=== PATIENT | female | born 1990 | race Caucasian/White ===

== ENCOUNTER 2020-01-15 19:51 | Emergency (ER) | payer OTHER, SELFPAY ==
[2020-01-15 19:56] VITALS: BP 146/85; PULSE 115; RESP 22; TEMP 37.1; O2SAT 97; BMI 37.2
--- NOTE | 2020-01-15 20:17 | DI.RAD.S_ITS ---
PROCEDURE: XR CHEST 2V INDICATIONS: cough, sob TECHNIQUE: 2 views of the chest were acquired. COMPARISON: None. FINDINGS: Surgical changes and devices: None. Lungs and pleura: Lungs are clear. No pleural effusions or pneumothorax. Mediastinum: Mediastinal contours are normal. Heart size is normal. Bones and chest wall: No suspicious bony abnormalities. Soft tissues appear unremarkable. IMPRESSION: No evidence acute pulmonary process. Dictated by: Timbo Perez M.D. on 01/15/2020 at 20:38 Approved by: Timbo Perez M.D. on 01/15/2020 at 20:39
[2020-01-15] MEDS: ALBUTEROL HFA PREPACK 1 BOX MISC (20:31)
[2020-01-15 20:49] LABS: Add Manual Diff / Slide Review NO; Basophils Absolute Auto 0 /uL (0-100); Basophils Percent Auto 0.4 % (0-2); Eosinophils Absolute Auto 100 /uL (0-450); Eosinophils Percent Auto 1.6 % (2-4); Hematocrit 40.7 % (36-46); Hemoglobin 13.5 g/dL (12.0-16.0); Lymphocytes Absolute Auto 2900 /uL (1100-4500); Mean Corpuscular HGB Conc 33.1 % (30-36); Mean Corpuscular Hemoglobin 28.3 PG (26-34); Mean Corpuscular Volume 85.7 fL (80-100); Monocytes Absolute Auto 400 /uL (0-900); Monocytes Percent Auto 5.1 % (3-14); Neutrophils Absolute Auto 5200 /uL (1500-7000); Neutrophils Percent Auto 59.9 % (50-75); Platelet Count 279 X10^3/uL (150-400); Red Blood Cell Count 4.75 X10^6/uL (4.0-5.2); Red Cell Distribution Width 12.9 % (11.6-14.8); White Blood Cell Count 8.7 X10^3/uL (4.5-11.0)
--- NOTE | 2020-01-15 20:53 | ED.URI ---
HPI - URI/Sore Throat <FLORENCIO Montez - Last Filed: 01/15/20 22:02> General Chief Complaint: Upper Respiratory Symptoms Stated Complaint: CHEST HURTS COUGH SOB NAUSEA Time Seen by Provider: 01/15/20 19:55 Source: patient Mode of arrival: Ambulatory Limitations: no limitations History of Present Illness HPI Narrative: This is a 29-year-old female, nonsmoker, who presents to ED with short of breath, nonproductive cough, mid chest pressure discomfort since yesterday. Patient reports she had intermittent nausea for last couple days which got became worse. Patient stays her symptoms got much worse today and was concerned and called nurse line and she was referred to emergency room for evaluation. Patient has history of anxiety and depression and recently had medication change from Zoloft to Paxil about a week ago states struggling with the emotion and from current state with Covid-19 pandemic crisis and she worries about her 2-year-old child at home. Patient denies fever, chills, sore throat. Patient denies ill exposure and has been self quarantine at home for last 1 week. Patient states her chest discomfort is similar to pain from pneumonia that she had 2 years ago. Patient states she has been eating, drinking well and denies any urinary symptoms. LMP almost 4 weeks ago but is not concerned for and states using NuvaRing consistently. Patient denies recent travel, history of blood clots, prolonged bed rest. Related Data Allergies Allergy/AdvReac Type Severity Reaction Status Date / Time morphine Allergy Severe ITCHING Verified 01/15/20 20:00 Review of Systems <FLORENCIO Montez - Last Filed: 01/15/20 22:02> Review of Systems Narrative: General: Denies fever, chills, fatigue, malaise, sweats. HEENT: Denies sinus pain, ear pain, sore throat, difficulty swallowing, dizziness. Respiratory: See HPI Cardiovascular: Denies (+) chest pain, palpitations, orthopnea, edema. Gastrointestinal: Denies (+) nausea, vomiting, abdominal pain, diarrhea, constipation, melena. : Denies dysuria, frequency, incontinence, hematuria, urinary retention. Musculoskeletal: Denies weakness, joint pain or bony pain. Skin: Denies rash, skin lesions, or other. Neurologic: Denies weakness, headache, numbness, change in speech, confusion, seizures, incoordination. Psychiatric: Reports increased anxiety. She denies suicidal or homicidal ideation. 12-point review of systems is negative except for those stated above. Patient History <FLORENCIO Montez - Last Filed: 01/15/20 22:02> Medical History Anxiety (Acute) Depression (Acute) Pneumonia (Acute) Surgical History History of removal of ovarian cyst (Acute) Hx of cholecystectomy (Acute) Social History Smoking Status: Never smoker Smoking Status: Never smoker alcohol intake frequency: 0-2 drinks per day Substance Use Type: does not use Exam <FLORENCIO Montez - Last Filed: 01/15/20 22:02> Narrative Exam Narrative: GEN: Alert, oriented x 3, well appearing and nourished, and moderate distress and easily became tearful during exam. Head: Normal cephalic, atraumatic. No scalp or temporal tenderness, palpable mass or rash. EYES: Pupils are equal, round, and reactive to light and accommodation. Extraocular muscles are intact bilaterally. There is no subconjunctival hemorrhage, exudate and sclera non-icteric. ENT: Bilateral auditory canals and tympanic membranes clear. Hearing grossly intact. Nose without bleeding, purulent discharge or deviation. Facial sinuses nontender to palpate. Mucous membrane moist, no mucosal lesion. Throat without erythema, tonsillar hypertrophy or exudate. Uvula in midline, airway patent. Neck: Trachea in midline. No JVD, non-tender without lymphadenopathy. No masses or thyroid megaly. Supple, non-tender and no meningeal signs. CARDIAC: Normal regular tachy rate and rhythm without murmurs, gallops, or rubs. No chest wall tenderness. No peripheral edema, cyanosis or pallor. Capillary refill is less than 2 seconds. RESPIRATORY: Lungs are clear to auscultate bilaterally. Nonproductive cough witnessed during exam. No wheezes, rales, or rhonchi. No stridor, respiratory distress, increase work of breathing, or accessary muscle used. Oxygenation in room air was 98 to 98%. ABD: Abdomen soft, nontender and non-distended. No guarding or rebound tenderness to palpate. Bowel sounds are normal in all 4 quadrants. There is no palpable masses or organomegaly. EXT: Full painless ROM of all extremities with no loss of sensation, strength, effusion or edema. SKIN: Warm, dry, normal color for patient. No erythema, lesions or rash over visible areas. BACK: Nontender without deformity or crepitance. No flank tenderness. NEUROLOGICAL: Alert and oriented to place, time and person. Sensation and motor function intact bilaterally. No facial droops, dysphasia. PSYCHIATRIC: No hallucinations or abnormal behaviors during the examination. Apprehensive and easily tearful during exam stating increased anxiety. Patient is not suicidal. Initial Vital Signs Initial Vital Signs: Vital Signs Temperature 98.8 F 01/15/20 19:56 Pulse Rate 115 H 01/15/20 19:56 Respiratory Rate 22 01/15/20 19:56 Blood Pressure 146/85 H 01/15/20 19:56 Pulse Oximetry 97 01/15/20 19:56 <Nisah Dennis MD - Last Filed: 01/15/20 22:57> Initial Vital Signs Initial Vital Signs: Vital Signs Temperature 98.8 F 01/15/20 19:56 Pulse Rate 115 H 01/15/20 19:56 Respiratory Rate 22 01/15/20 19:56 Blood Pressure 146/85 H 01/15/20 19:56 Pulse Oximetry 97 01/15/20 19:56 Scores <FLORENCIO Montez - Last Filed: 01/15/20 22:02> GCS Charles coma scale eye opening: Spontaneous Charles coma scale verbal response: Orientated Charles coma scale motor response: Obey commands Charles coma scale total score: 15 Wells' Criteria for PE Clinical signs and symptoms of DVT: No PE is #1 Dx or equally likely: No Heart rate > 100: Yes Immobilization at least 3 days or surg in previous 4 weeks: No History of PE or DVT: No Hemoptysis: No Malignancy w/Treatment within 6 months or palliative: No Wells' PE Score total: 1.5 Course <FLORENCIO Montez - Last Filed: 01/15/20 22:02> Orders Ordered: ED Orders 01/15/20 20:17 XR chest 2V Stat EKG-12 Lead Stat 01/15/20 20:41 Complete Blood Count AUTO DIFF Stat Comprehensive Metabolic Panel Stat D Dimer Stat Lipase Stat Troponin & CK Cardiac Panel Stat Discontinued Medications Albuterol (Ventolin Hfa Prepack) 1 box [facility] SEE[facility] ONE Stop: 01/15/20 20:18 Last Admin: 01/15/20 20:31 Dose: 1 box Documented by: MARLEY Ondansetron HCl (Zofran Odt) 4 mg SL NOW ONE Stop: 01/15/20 20:56 Last Admin: 01/15/20 22:14 Dose: Not Given Documented by: MARLEY Vital Signs Vital signs: Vital Signs - 8 hr 01/15/20 19:56 01/15/20 20:54 01/15/20 21:00 Temperature 98.8 F Pulse Rate 115 H 97 H 96 H Respiratory Rate 22 18 Blood Pressure 146/85 H Blood Pressure [Left Arm] 149/90 H Pulse Oximetry 97 96 01/15/20 21:30 01/15/20 22:12 Temperature 98.9 F Pulse Rate 97 H Respiratory Rate 18 Blood Pressure Blood Pressure [Left Arm] 149/89 H Pulse Oximetry 96 <Nisha Dennis MD - Last Filed: 01/15/20 22:57> Orders Ordered: ED Orders 01/15/20 20:17 XR chest 2V Stat EKG-12 Lead Stat 01/15/20 20:41 Complete Blood Count AUTO DIFF Stat Comprehensive Metabolic Panel Stat D Dimer Stat Lipase Stat Troponin & CK Cardiac Panel Stat Discontinued Medications Albuterol (Ventolin Hfa Prepack) 1 box [facility] ONE Stop: 01/15/20 20:18 Last Admin: 01/15/20 20:31 Dose: 1 box Documented by: MARLEY Ondansetron HCl (Zofran Odt) 4 mg SL NOW ONE Stop: 01/15/20 20:56 Last Admin: 01/15/20 22:14 Dose: Not Given Documented by: MARLEY Vital Signs Vital signs: Vital Signs - 8 hr 01/15/20 19:56 01/15/20 20:54 01/15/20 21:00 Temperature 98.8 F Pulse Rate 115 H 97 H 96 H Respiratory Rate 22 18 Blood Pressure 146/85 H Blood Pressure [Left Arm] 149/90 H Pulse Oximetry 97 96 0413/20 21:30 01/15/20 22:12 Temperature 98.9 F Pulse Rate 97 H Respiratory Rate 18 Blood Pressure Blood Pressure [Left Arm] 149/89 H Pulse Oximetry 96 MDM - URI/Sore Throat <WILBUR MontezP - Last Filed: 01/15/20 22:02> Differential Diagnosis Differential diagnosis: Likely upper respiratory infection, bronchitis and other (Pneumonia, coronavirus infection, atypical chest pain, PE, pancreatitis) Medical Records Attestation: I reviewed the patient's medical records. Lab Data Attestation: I reviewed the patient's lab results. Result diagrams: 01/15/20 20:41 01/15/20 20:41 Labs: Lab Results 01/15/20 01/15/20 01/15/20 Range/Units 20:41 20:41 20:41 WBC 8.7 (4.5-11.0) X10^3/uL RBC 4.75 (4.0-5.2) X10^6/uL Hgb 13.5 (12.0-16.0) g/dL Hct 40.7 (36-46) % MCV 85.7 (80-100) fL MCH 28.3 (26-34) PG MCHC 33.1 (30-36) % RDW 12.9 (11.6-14.8) % Plt Count 279 (150-400) X10^3/uL Neut % (Auto) 59.9 (50-75) % Lymph % (Auto) 33.0 (25-40) % Elmore % (Auto) 5.1 (3-14) % Eos % (Auto) 1.6 L (2-4) % Baso % (Auto) 0.4 (0-2) % Neut # (Auto) 5200 (2874-9689) /uL Lymph # (Auto) 2900 (0909-7731) /uL Elmore # (Auto) 400 (0-900) /uL Eos # (Auto) 100 (0-450) /uL Baso # (Auto) 0 (0-100) /uL D-Dimer 236 H (<230) ng/mL Sodium 138 (137-145) mmol/L Potassium 3.5 (3.4-5.1) mmol/L Chloride 103 (98-107) mmol/L Carbon Dioxide 26 (22-32) mmol/L BUN 8 (7-17) mg/dL Creatinine 0.68 (0.52-1.04) mg/dL Estimated GFR > 60.0 (>60) mL/min BUN/Creatinine Ratio 11.8 (6-22) Glucose 170 H (70-100) mg/dL Calcium 9.8 (8.4-10.2) mg/dL Total Bilirubin 0.2 (0.2-1.3) mg/dL AST 17 (14-36) IU/L ALT 13 (<35) IU/L Alkaline Phosphatase 101 (38-126) U/L Total Creatine Kinase 61 (30-135) U/L CK-MB (CK-2) TNP CK-MB (CK-2) Rel Index TNP Troponin I < 0.012 (0.01-0.034) ng/mL Total Protein 7.6 (6.3-8.2) g/dL Albumin 4.2 (3.5-5.0) g/dL Globulin 3.4 (1.7-4.1) g/dL Albumin/Globulin Ratio 1.2 (1.0-2.8) Lipase 148 (23-300) U/L Imaging Data Chest x-ray: Radiologist's Impression: [place] [address] XRay Report Signed Patient: Shauna Rodríguez [facility]#: [id number] : 1990Acct:[id number] Age/Sex: 29 / FDate of Service: 01/15/20 Loc: ED Accession Number: [id number] Procedure: XR chest 2V Ordering Provider: Bakari Rivers PROCEDURE: XR CHEST 2V INDICATIONS: cough, sob TECHNIQUE: 2 views of the chest were acquired. COMPARISON: None. FINDINGS: Surgical changes and devices: None. Lungs and pleura: Lungs are clear. No pleural effusions or pneumothorax. Mediastinum: Mediastinal contours are normal. Heart size is normal. Bones and chest wall: No suspicious bony abnormalities. Soft tissues appear unremarkable. IMPRESSION: No evidence acute pulmonary process. Dictated by: Timbo Perez M.D. on 01/15/2020 at 20:38 Approved by: Timbo Perez M.D. on 01/15/2020 at 20:39 ECG Data Attestation: I personally reviewed and interpreted this ECG as follows: Prior ECG tracings: not available for review Interpretation: Sinus rhythm rate at 91. Left dominant axis. IL int 152, QRS dur 93, QT/QTc 378/464. No ST elevation or depression. MDM Narrative Medical decision making narrative: This is a 29-year-old female who has history of anxiety and depression presents to ED with chest pressure, short of breath, nonproductive cough with intermittent nausea which started yesterday and much worse today and concern for Covid 19. She reports increased anxiety with cold with pandemic crisis and a recent medication change from Zoloft to Paxil. Patient's lung sounds are clear to auscultate without increased work of breathing. Patient's O2 sat in room air was 98-99%. Chest x-ray does not indicate acute findings. Patient was tachycardia when she arrived to ED with heart rate of 116. Patient easily became tearful during exam and heart rate increased to 110's, at resting heart rate in 100's with with slightly hypertensive. Patient provided albuterol inhaler with spacer which patient found to be helpful with chest discomfort. No leukocytosis or decreased lymphocytes and with normal platelets. Stable H&H. Mildly increased serum glucose of 170 otherwise unremarkable chemistry test. Cardiac enzymes were negative. Lipase was normal of 148 with within normal liver function test. Patient declined Zofran for intermittent nausea. EKG was sinus rhythm rate at 91. Wells score for PE was 1.5 and patient is in low risk group for PE. D-dimer test was 236 (corrected D-dimer would be 310) and likely negative for PE. Patient advise continue with self quarantine and she will receive a phone call from a with coronavirus test results. Patient advised to manage her stressed with deep breathing exercise, guided imagery, relaxation and discussed with her PCP if new medication is not working effectively next 2-3 weeks. Return precautions were discussed with the patient and patient verbalized understanding and in agreement with treatment plan. Discharged to home with prepack albuterol with spacer. Teaching has been done by RT. <Nisha Dennis MD - Last Filed: 01/15/20 22:57> Lab Data Labs: Lab Results 01/15/20 01/15/20 01/15/20 Range/Units 20:41 20:41 20:41 WBC 8.7 (4.5-11.0) X10^3/uL RBC 4.75 (4.0-5.2) X10^6/uL Hgb 13.5 (12.0-16.0) g/dL Hct 40.7 (36-46) % MCV 85.7 (80-100) fL MCH 28.3 (26-34) PG MCHC 33.1 (30-36) % RDW 12.9 (11.6-14.8) % Plt Count 279 (150-400) X10^3/uL Neut % (Auto) 59.9 (50-75) % Lymph % (Auto) 33.0 (25-40) % Elmore % (Auto) 5.1 (3-14) % Eos % (Auto) 1.6 L (2-4) % Baso % (Auto) 0.4 (0-2) % Neut # (Auto) 5200 (8496-2017) /uL Lymph # (Auto) 2900 (2040-2132) /uL Elmore # (Auto) 400 (0-900) /uL Eos # (Auto) 100 (0-450) /uL Baso # (Auto) 0 (0-100) /uL D-Dimer 236 H (<230) ng/mL Sodium 138 (137-145) mmol/L Potassium 3.5 (3.4-5.1) mmol/L Chloride 103 (98-107) mmol/L Carbon Dioxide 26 (22-32) mmol/L BUN 8 (7-17) mg/dL Creatinine 0.68 (0.52-1.04) mg/dL Estimated GFR > 60.0 (>60) mL/min BUN/Creatinine Ratio 11.8 (6-22) Glucose 170 H (70-100) mg/dL Calcium 9.8 (8.4-10.2) mg/dL Total Bilirubin 0.2 (0.2-1.3) mg/dL AST 17 (14-36) IU/L ALT 13 (<35) IU/L Alkaline Phosphatase 101 (38-126) U/L Total Creatine Kinase 61 (30-135) U/L CK-MB (CK-2) TNP CK-MB (CK-2) Rel Index TNP Troponin I < 0.012 (0.01-0.034) ng/mL Total Protein 7.6 (6.3-8.2) g/dL Albumin 4.2 (3.5-5.0) g/dL Globulin 3.4 (1.7-4.1) g/dL Albumin/Globulin Ratio 1.2 (1.0-2.8) Lipase 148 (23-300) U/L Discharge Plan Departure Patient Disposition: Home Clinical Impression: Anxiety Upper respiratory infection Qualifiers: URI type: unspecified URI Qualified Code(s): J06.9 - Acute upper respiratory infection, unspecified Discharge Date/Time: 01/15/20 20:13 Instructions: DI for Viral Upper Respiratory Infection -- Adult, DI for Anxiety -- Adult Activity Restrictions/Additional Instructions: You have been diagnosed with [upper respiratory infection and anxiety]. What to do: *Take your medications as directed. Please use inhaler with spacer with frequent cough, chest tightness, short of breath. EKG, chest x-ray, blood tests were all assuring. Cardiac enzyme test was negative. Chest x-ray was negative for infection. EKG was sinus rhythm rate at 91. Chemistry test, CBC were unremarkable except mildly elevated serum glucose of 170. D-dimer was 236. * per recommendations from the CDC and the [facility] Department of Health for coronavirus infection. * stay home except to get medical care. Restrict activities outside your home, except for getting medical care. Do not go to work, school, or public areas. Avoid using public transportation, ride sharing, or taxis. * separate yourself from other people in your home. * call ahead before visiting your doctor * Wear a face mask * Cover your coughs and sneezes * Clean your hands often * Avoid sharing household items * Clean all high-touch services every day * Monitor your symptoms and seek prompt medical attention if your illness is worsening, particularly with difficulty in breathing. Discussed continuing home isolation * for individuals with symptoms who are confirmed or suspected cases of COVID-19 and are directed to care for themselves at home, discontinue home isolation under the following conditions: 1. At least 72 hours have passed since recovery, defined as resolution of fever without the use of fever reducing medications, and improvement in respiratory symptoms (cough, shortness of breath) AND, 2. At least 7 days have passed since symptoms 1st appeared Individuals with laboratory confirmed COVID-19 who have not had any symptoms may discontinue home isolation when at least 7 days have passed since the date of their 1st COVID-19 diagnostic test and have had no subsequent illness *Follow up with your primary care provider in 2-3 days, call for an appointment (if Covid test is negative). Let them know you were seen in the ED and that we asked you to be seen in follow up. *Return to ED if you have any new, worsening, or concerning symptoms, such as [increasing pain, different type of chest pain, breathing difficulty, unable to tolerate fluids, high fever, or any acute concerns]. Referrals: [facility] [Outside] <Nisha Dennis MD - Last Filed: 01/15/20 22:57> Cosign ED Attending Cosignature Attestation: I was immediately available in the department for consultation throughout this patient's visit. I agree with documentation as above. Nisha Dennis MD
[2020-01-15 20:54] VITALS: PULSE 97
[2020-01-15 21:00] VITALS: BP 149/90; PULSE 96; RESP 18; O2SAT 96
[2020-01-15 21:02] LABS: Alanine Aminotransferase 13 IU/L (<35); Albumin 4.2 g/dL (3.5-5.0); Albumin Globulin Ratio 1.2 (1.0-2.8); Alkaline Phosphatase 101 U/L (38-126); Aspartate Aminotransferase 17 IU/L (14-36); BUN Creatinine Ratio 11.8 (6-22); Bilirubin Total 0.2 mg/dL (0.2-1.3); Blood Urea Nitrogen 8 mg/dL (7-17); Calcium 9.8 mg/dL (8.4-10.2); Carbon Dioxide 26 mmol/L (22-32); Chloride 103 mmol/L (98-107); Creatine Kinase 61 U/L (30-135); Estimated Glomerular Filt Rate > 60.0 mL/min (>60); Globulin 3.4 g/dL (1.7-4.1); Glucose 170 mg/dL (70-100); HEMOLYSIS < 15 (0-50); Lipase 148 U/L (23-300); Potassium 3.5 mmol/L (3.4-5.1); Sodium 138 mmol/L (137-145); Total Protein 7.6 g/dL (6.3-8.2)
[2020-01-15 21:14] LABS: Troponin I < 0.012 ng/mL (0.01-0.034)
[2020-01-15 21:30] VITALS: BP 149/89; PULSE 97; RESP 18; O2SAT 96
[2020-01-15 21:32] LABS: D Dimer 236 ng/mL (<230)
[2020-01-15 22:12] VITALS: TEMP 37.2
[2020-01-18 04:07] LABS: COVID19 Sendout Not Detected (Not Detected)
== END 2020-01-15 20:13 | disposition home or self-care (01) ==
PROVIDERS: Emergency Provider Nurse Practitioner Family
DX: F41.9 Anxiety disorder, unspecified (principal); J06.9 Acute upper respiratory infection, unspecified; R05 Cough; R07.9 Chest pain, unspecified; R06.02 Shortness of breath
CPT/HCPCS: 36415; 71046; 80053; 82550; 83690; 84484; 85025; 85379; 87635; 93005; 94640; 99284

== ENCOUNTER → 2022-07-01 13:53 | Outpatient (CLI) | payer OTHER, SELFPAY ==
--- NOTE | 2022-07-01 19:11 | DI.NM.S_ITS ---
DATE OF SERVICE: 07/01/2022 PROCEDURE PERFORMED: Exercise stress test. INDICATION: Palpitation with inappropriate sinus tachycardia. CARDIAC STRESS: The underwent exercise stress test under the supervision of an attending staff. She walked on Hermes protocol for 7 minutes and 56 seconds, achieved 94 percent of target heart rate, 10.1 METs of workload and functional aerobic impairment positive 16 percent. Baseline blood pressure 124/80 and peak blood pressure 160/90 mmHg. Baseline rhythm was sinus with heart rate 99 to 119 beats per minute with some nonspecific ST-T changes. During exercise, there were no convincing new inducible ischemic changes. No significant arrhythmias. However, in recovery, the patient has frequent PVCs, mostly monomorphic, including bigeminy pattern. No ventricular tachycardia. The patient was symptomatic with PVCs. She did Valsalva and PVC got resolved. No chest discomfort. Had some shortness of breath. CONCLUSION: 1. Exercise stress test is negative for inducible ischemia. 2. Diminished exercise tolerance. Functional aerobic impairment positive 16 percent. 3. Normal blood pressure response. 4. Baseline sinus tachycardia. In recovery, frequent premature ventricular contractions, which were monomorphic and got resolved with Valsalva. No chest discomfort. Shauna Rodríguez - CALI/tania/curly doc#: [id number]/job#: [id number] dd: 07/01/2022 17:17:00 dt: 07/01/2022 17:45:00 DICTATING /COPIES TO: Zina Aguirre MD COPIES MNE: JUDY;
== END ==
PROVIDERS: PCP Student in an Organized Health Care Education/Training Program; Referring Provider Internal Medicine Cardiovascular Disease; Visit Provider Internal Medicine Cardiovascular Disease
DX: R00.0 Tachycardia, unspecified (principal)
CPT/HCPCS: 93017

== ENCOUNTER 2022-07-27 13:18 | Emergency (ER) | payer OTHER, SELFPAY ==
[2022-07-27 13:24] VITALS: BP 138/76
[2022-07-27 13:25] VITALS: PULSE 107; O2SAT 97
[2022-07-27 13:27] VITALS: BP 136/76; PULSE 106; RESP 16; TEMP 36.9; O2SAT 99
[2022-07-27 13:30] VITALS: BP 129/82; PULSE 106; O2SAT 96
[2022-07-27 14:00] VITALS: BP 128/77; PULSE 108; O2SAT 96
--- NOTE | 2022-07-27 14:07 | ED.ABDPAIN ---
HPI - Abdominal Pain <FLORENCIO Hawley - Last Filed: 07/27/22 18:48> General Chief Complaint: Abdominal Pain Stated Complaint: abd pain since Time Seen by Provider: 07/27/22 13:36 Source: patient Mode of arrival: Ambulatory History of Present Illness HPI narrative: This is a 31-year-old female with history of type 2 diabetes, on Jardiance, who presents to emergency department complaining of suprapubic fullness and pressure for the last 4 days. She denies having abnormal vaginal discharge, states that her is deployed, denies any fever or chills. Denies urinary frequency or urgency, denies flank pain, shortness of breath, chest pain, back pain. Denies any upper abdominal pain, has a history of cholecystectomy and ovarian cyst with ovarian cystectomy x1. Denies any upper abdominal pain, nausea or vomiting. States that she needs to leave by 16:00 today. Patient reports that she has a history of bacterial vaginosis as well. Related Data Previous Rx's Medication Instructions Recorded metronidazole 500 mg tablet 500 mg PO BID 7 days #14 tabs 07/27/22 Allergies Allergy/AdvReac Type Severity Reaction Status Date / Time morphine Allergy Severe ITCHING Verified 07/27/22 13:30 Review of Systems <FLORENCIO Hawley - Last Filed: 07/27/22 18:48> Review of Systems Narrative: Review of systems is negative for acute abnormalities unless otherwise noted in HPI Patient History <FLORENCIO Hawley - Last Filed: 07/27/22 18:48> Medical History (Updated 07/27/22 @ 15:55 by FLORENCIO Hawley) Anxiety Depression Pneumonia Surgical History History of removal of ovarian cyst Hx of cholecystectomy Social History Smoking Status: Never smoker Smoking Status: Never smoker alcohol intake frequency: 0-2 drinks per day Substance Use Type: does not use Exam <FLORENCIO Hawley - Last Filed: 07/27/22 18:48> Narrative Exam Narrative: Reviewed vitals signs and nursing notes. General: cooperative, comfortable, in no acute distress, well groomed HEENT: symmetrical facial expressions, moist mucous membranes Cardiovascular: regular rate and rhythm, no peripheral edema, warm extremities Respiratory: normal effort, able to speak in complete sentences, without wheezing, stridor, or abnormal breath sounds. No retractions or tachypnea. GI: abdomen soft, nontender to palpation, nondistended, without masses, rebound tenderness or exquisite tenderness with exam. /blood splatter analyst: Pelvic exam completed, patient has white vaginal discharge appears to be more than a normal amount, without adnexal tenderness MSK: moves all extremities, neurovascularly intact, no weakness, normal tone Skin: brisk capillary refill, without pallor or erythema Neuro: normal speech and cognition, A&O x3, ambulatory, clear speech Psych: mental status is grossly normal, congruent mood, normal affect, pleasant and cooperative Initial Vital Signs Initial Vital Signs: Vital Signs Blood Pressure 138/76 07/27/22 13:24 <Shauna Ellsion DO - Last Filed: 08/02/22 04:41> Initial Vital Signs Initial Vital Signs: Vital Signs Blood Pressure 138/76 07/27/22 13:24 Course <FLORENCIO Hawley - Last Filed: 07/27/22 18:48> Course Additional Information: [facility] CLIA ID [id number] [address] [place] [address] RUN DATE: 07/27/22 Specimen Inquiry PAGE 1 RUN TIME: 1603 Name: Shauna Rodríguez Age/Sex: 31/F Attend Dr: Nia Kinney Unit#: [id number] : 1990Location: ED Re07/27/22 Disch: Status: REG ER SPEC #: [id number] LUIZA: 07/27/22 STATUS: COMP REQ #: [id number] SPDESC: RECD: 07/27/221520 SUBM DR: Nia Kinney SOURCE: Vaginal ENTR: 07/27/[address]: Ana M Navarro MD FAX TO: ORDERED: Wet Prep Procedure Result Verified Site Wet Prep Tric BV Marimar Final 07/27/22-154 White blood cells Moderate poly WBCs Clue cells: None seen Yeast: None seen Trichomonas: None seen Orders Ordered: Discontinued Medications Acetaminophen (Acetaminophen 325 Mg Tablet) 650 mg PO NOW ONE Stop: 07/27/22 14:11 Last Admin: 07/27/22 14:36 Dose: 650 mg Documented By: CARLOS ALBERTO Ketorolac Tromethamine (Ketorolac 10 Mg Tablet) 10 mg PO NOW ONE Stop: 07/27/22 14:11 Last Admin: 07/27/22 14:36 Dose: 10 mg Documented By: CARLOS ALBERTO Metronidazole (Metronidazole 500 Mg Tablet) 500 mg PO NOW ONE Stop: 07/27/22 15:39 Last Admin: 07/27/22 15:49 Dose: 500 mg Documented By: CARLOS ALBERTO Metronidazole (Metronidazole 0.75% 70 Gm Gel) 5 applic VAG NOW ONE Stop: 07/27/22 15:40 Last Admin: 07/27/22 15:49 Dose: 5 applic Documented By: CARLOS ALBERTO Phenazopyridine HCl (Phenazopyridine 100 Mg Tablet) 100 mg PO NOW ONE Stop: 07/27/22 14:11 Last Admin: 07/27/22 14:37 Dose: 100 mg Documented By: CARLOS ALBERTO Vital Signs Vital signs: Vital Signs - 8 hr 07/27/22 13:27 07/27/22 13:24 07/27/22 13:25 Temperature 98.5 F Pulse Rate 106 H 107 H Respiratory Rate 16 Blood Pressure 136/76 138/76 Pulse Oximetry 99 97 Oxygen Delivery Method Room Air 07/27/22 13:30 07/27/22 13:30 07/27/22 14:00 Temperature Pulse Rate 106 H Respiratory Rate Blood Pressure 129/82 128/77 Pulse Oximetry 96 Oxygen Delivery Method 07/27/22 14:00 Temperature Pulse Rate 108 H Respiratory Rate Blood Pressure Pulse Oximetry 96 Oxygen Delivery Method <Shauna Ellison DO - Last Filed: 08/02/22 04:41> Orders Ordered: Discontinued Medications Acetaminophen (Acetaminophen 325 Mg Tablet) 650 mg PO NOW ONE Stop: 07/27/22 14:11 Last Admin: 07/27/22 14:36 Dose: 650 mg Documented By: CARLOS ALBERTO Ketorolac Tromethamine (Ketorolac 10 Mg Tablet) 10 mg PO NOW ONE Stop: 07/27/22 14:11 Last Admin: 07/27/22 14:36 Dose: 10 mg Documented By: CARLOS ALBERTO Metronidazole (Metronidazole 500 Mg Tablet) 500 mg PO NOW ONE Stop: 07/27/22 15:39 Last Admin: 07/27/22 15:49 Dose: 500 mg Documented By: CARLOS ALBERTO Metronidazole (Metronidazole 0.75% 70 Gm Gel) 5 applic VAG NOW ONE Stop: 07/27/22 15:40 Last Admin: 07/27/22 15:49 Dose: 5 applic Documented By: CARLOS ALBERTO Phenazopyridine HCl (Phenazopyridine 100 Mg Tablet) 100 mg PO NOW ONE Stop: 07/27/22 14:11 Last Admin: 07/27/22 14:37 Dose: 100 mg Documented By: CARLOS ALBERTO Vital Signs Vital signs: Vital Signs - 8 hr 07/27/22 13:27 07/27/22 13:24 07/27/22 13:25 Temperature 98.5 F Pulse Rate 106 H 107 H Respiratory Rate 16 Blood Pressure 136/76 138/76 Pulse Oximetry 99 97 Oxygen Delivery Method Room Air 07/27/22 13:30 07/27/22 13:30 07/27/22 14:00 Temperature Pulse Rate 106 H Respiratory Rate Blood Pressure 129/82 128/77 Pulse Oximetry 96 Oxygen Delivery Method 07/27/22 14:00 Temperature Pulse Rate 108 H Respiratory Rate Blood Pressure Pulse Oximetry 96 Oxygen Delivery Method MDM - Abdominal Pain <FLORENCIO Hawley - Last Filed: 07/27/22 18:48> Lab Data Result diagrams: 07/27/22 14:17 07/27/22 14:17 Labs: Lab Results 07/27/22 07/27/22 07/27/22 Range/Units 14:11 14:17 14:17 WBC 8.7 (4.5-11.0) X10^3/uL RBC 5.11 (4.0-5.2) X10^6/uL Hgb 14.9 (12.0-16.0) g/dL Hct 44.6 (36-46) % MCV 87.2 (80-100) fL MCH 29.1 (26-34) PG MCHC 33.4 (30-36) % RDW 12.9 (11.6-14.8) % Plt Count 247 (150-400) X10^3/uL Neut % (Auto) 58.4 (50-75) % Lymph % (Auto) 35.2 (25-40) % [place] % (Auto) 4.6 (3-14) % Eos % (Auto) 1.6 L (2-4) % Baso % (Auto) 0.2 (0-2) % Neut # (Auto) 5100 (8930-6428) /uL Lymph # (Auto) 3100 (6739-9235) /uL [place] # (Auto) 400 (0-900) /uL Eos # (Auto) 100 (0-450) /uL Baso # (Auto) 0 (0-100) /uL Sodium 137 (137-145) mmol/L Potassium 4.4 (3.4-5.1) mmol/L Chloride 102 (98-107) mmol/L Carbon Dioxide 27 (22-32) mmol/L BUN 10 (7-17) mg/dL Creatinine 0.58 (0.52-1.04) mg/dL Estimated GFR > 60 (>60) mL/min BUN/Creatinine Ratio 17.2 (6-22) Glucose 130 H (70-100) mg/dL Calcium 9.2 (8.4-10.2) mg/dL Total Bilirubin 0.3 (0.2-1.3) mg/dL AST 32 (14-36) IU/L ALT 37 H (<35) IU/L Alkaline Phosphatase 90 (38-126) U/L Total Protein 7.3 (6.3-8.2) g/dL Albumin 4.2 (3.5-5.0) g/dL Globulin 3.1 (1.7-4.1) g/dL Albumin/Globulin Ratio 1.4 (1.0-2.8) Lipase 116 (23-300) U/L Serum , Qual (Negative) Urine Color Yellow Urine Appearance Clear Urine pH 5.0 (4.5-8.0) Ur Specific Fitz[place]am 1.015 (1.000-1.035) Urine Protein Negative (Negative) Urine Glucose (UA) 3+ H (Negative) g/dL Urine Ketones Negative (NEGATIVE) Urine Occult Blood Negative (Negative) Urine Nitrate Negative (Negative) Urine Bilirubin Negative (NEGATIVE) Urine Urobilinogen 0.2 (0.2) E.U./dL Ur Leukocyte Esterase Negative (NEGATIVE) Urine RBC None seen (0-5/HPF) Urine WBC None seen (0-5/HPF) Ur Squamous Epith Cells 0-1 /hpf (0-5/HPF) Urine Bacteria None seen (None) Ur Culture Indicated? Cult not indicated 07/27/22 Range/Units 14:18 WBC (4.5-11.0) X10^3/uL RBC (4.0-5.2) X10^6/uL Hgb (12.0-16.0) g/dL Hct (36-46) % MCV (80-100) fL MCH (26-34) PG MCHC (30-36) % RDW (11.6-14.8) % Plt Count (150-400) X10^3/uL Neut % (Auto) (50-75) % Lymph % (Auto) (25-40) % [place] % (Auto) (3-14) % Eos % (Auto) (2-4) % Baso % (Auto) (0-2) % Neut # (Auto) (8115-2288) /uL Lymph # (Auto) (4632-7321) /uL [place] # (Auto) (0-900) /uL Eos # (Auto) (0-450) /uL Baso # (Auto) (0-100) /uL Sodium (137-145) mmol/L Potassium (3.4-5.1) mmol/L Chloride (98-107) mmol/L Carbon Dioxide (22-32) mmol/L BUN (7-17) mg/dL Creatinine (0.52-1.04) mg/dL Estimated GFR (>60) mL/min BUN/Creatinine Ratio (6-22) Glucose (70-100) mg/dL Calcium (8.4-10.2) mg/dL Total Bilirubin (0.2-1.3) mg/dL AST (14-36) IU/L ALT (<35) IU/L Alkaline Phosphatase (38-126) U/L Total Protein (6.3-8.2) g/dL Albumin (3.5-5.0) g/dL Globulin (1.7-4.1) g/dL Albumin/Globulin Ratio (1.0-2.8) Lipase (23-300) U/L Serum , Qual Negative (Negative) Urine Color Urine Appearance Urine pH (4.5-8.0) Ur Specific [place]am (1.000-1.035) Urine Protein (Negative) Urine Glucose (UA) (Negative) g/dL Urine Ketones (NEGATIVE) Urine Occult Blood (Negative) Urine Nitrate (Negative) Urine Bilirubin (NEGATIVE) Urine Urobilinogen (0.2) E.U./dL Ur Leukocyte Esterase (NEGATIVE) Urine RBC (0-5/HPF) Urine WBC (0-5/HPF) Ur Squamous Epith Cells (0-5/HPF) Urine Bacteria (None) Ur Culture Indicated? Imaging Data US - COLOR PASTE MIXER: Radiologist's Impression: PROCEDURE:? US PELVIC COMPLETE ? INDICATIONS:? suprapubic tenderness, not bladder infection, hx ovarian cys ? TECHNIQUE:? Real-time scanning was performed of the pelvic organs, with image documentation.? Additional endovaginal scanning was necessary due to incomplete visualization of the adnexal and endometrial structures by transabdominal scanning.? ? COMPARISON:? None. ? FINDINGS:? ?? Uterus:? Uterus is anteverted and normal in size at 7.6 x 5.3 x 3.1 cm. The myometrium is homogeneous. ? The endometrium measures 6 mm combined thickness.? ? Ovaries:? The right ovary measures 2.7 x 1.9 x 1.7 cm, with a calculated ovarian volume of 5 cc. The left ovary measures 3.2 x 2.1 x 2.5 cm, with a calculated ovarian volume of 9 cc. The ovaries have a normal sonographic appearance. Less than 12 follicles can be seen in each ovary.? No adnexal masses are seen. ? Other:? No pathologic free abdominal or pelvic fluid. ? ? IMPRESSION:? Unremarkable exam. ? ?? We strive to produce accurate, complete, and clear reports of imaging services. To assist us in improving patient care, this report was composed using standard report templates and voice recognition software. Therefore, it may contain abnormal punctuation, insertions and/or omissions. Occasional wrong-word or sound-alike substitutions may occur. Though we review the report and make efforts to correct it, we do recommend that the report be read carefully in proper context to recognize any text inaccuracies. ? ? Dictated by: Elyse Terry M.D. on 07/27/2022 at 16:08 ? ? Approved by: Elyse Terry M.D. on 07/27/2022 at 16:09 ? MDM Narrative Medical decision making narrative: This is a 31-year-old female presents to emergency department complaining of suprapubic tenderness and pressure for the last 4 days. She is diabetic, on Jardiance, UA was negative both POC on the urine dip and microscopy for WBCs, bacteria, nitrites, and RBCs. Patient denies any recent fever or other abdominal pain. Has a history of bacterial vaginosis, cholecystectomy, section and ovarian cyst drainage. Transvaginal ultrasound shows normal ovarian flow, endometrium measures 6 mm in combined thickness, uterus is anteverted and normal in size, no adnexal masses, no pathologic free abdominal or pelvic fluid with an unremarkable exam on radiology report. hydrographical technical officer reports that patient was tender during exam. She had thick white vaginal discharge for my exam and her wet prep is positive for poly wbc's. This is most likely bacterial vaginitis, no clue cells were seen however patient has history of this in the past. Gave her a intravaginal treatment of Flagyl for her symptoms today, she can repeat this as needed over the next 5 days and gave her 500 mg of p.o. Flagyl daily for the next 7 days. She was given Pyridium in the emergency department but states it did not have any effect on her symptoms, she was also given Toradol to use as needed for her pain. Her urine was negative on 2nd test for wbc's, bacterial, RBCs. Her glucose on her lab work today is 130, her urine shows 3+ urine glucose. This is most likely bacterial vaginitis, encourage patient to follow-up with her primary care provider for a test of cure after treatment. She was given strict return precautions to come back to the emergency department for any new or worsening symptoms. No peritoneal signs on abdominal exam. Patient remains p.o. tolerant. Serial abdominal exam without increase in abdominal pain. Given history and exam, low suspicion for acute abdominal process, such as acute cholecystitis, pancreatitis, perforated viscus, atypical appendicitis, colitis, diverticulitis or torsion. Extensive conversation about ER return precautions and need for close follow-up. Patient is appropriate and amenable to discharge home. Vital signs are stable on repeat examination is unremarkable. Patient has been informed of results. Patient has been given strict return to ER precautions for any new or worsening symptoms. Patient understands to follow up closely with outpatient providers as instructed. Patient understands plan and agrees to discharge home. All questions and concerns answered at this time. <Shauna Ellison, DO - Last Filed: 08/02/22 04:41> Lab Data Labs: Lab Results 07/27/22 07/27/22 07/27/22 Range/Units 14:11 14:17 14:17 WBC 8.7 (4.5-11.0) X10^3/uL RBC 5.11 (4.0-5.2) X10^6/uL Hgb 14.9 (12.0-16.0) g/dL Hct 44.6 (36-46) % MCV 87.2 (80-100) fL MCH 29.1 (26-34) PG MCHC 33.4 (30-36) % RDW 12.9 (11.6-14.8) % Plt Count 247 (150-400) X10^3/uL Neut % (Auto) 58.4 (50-75) % Lymph % (Auto) 35.2 (25-40) % [place] % (Auto) 4.6 (3-14) % Eos % (Auto) 1.6 L (2-4) % Baso % (Auto) 0.2 (0-2) % Neut # (Auto) 5100 (8267-8383) /uL Lymph # (Auto) 3100 (9723-9157) /uL [place] # (Auto) 400 (0-900) /uL Eos # (Auto) 100 (0-450) /uL Baso # (Auto) 0 (0-100) /uL Sodium 137 (137-145) mmol/L Potassium 4.4 (3.4-5.1) mmol/L Chloride 102 (98-107) mmol/L Carbon Dioxide 27 (22-32) mmol/L BUN 10 (7-17) mg/dL Creatinine 0.58 (0.52-1.04) mg/dL Estimated GFR > 60 (>60) mL/min BUN/Creatinine Ratio 17.2 (6-22) Glucose 130 H (70-100) mg/dL Calcium 9.2 (8.4-10.2) mg/dL Total Bilirubin 0.3 (0.2-1.3) mg/dL AST 32 (14-36) IU/L ALT 37 H (<35) IU/L Alkaline Phosphatase 90 (38-126) U/L Total Protein 7.3 (6.3-8.2) g/dL Albumin 4.2 (3.5-5.0) g/dL Globulin 3.1 (1.7-4.1) g/dL Albumin/Globulin Ratio 1.4 (1.0-2.8) Lipase 116 (23-300) U/L Serum , Qual (Negative) Urine Color Yellow Urine Appearance Clear Urine pH 5.0 (4.5-8.0) Ur Specific [place]am 1.015 (1.000-1.035) Urine Protein Negative (Negative) Urine Glucose (UA) 3+ H (Negative) g/dL Urine Ketones Negative (NEGATIVE) Urine Occult Blood Negative (Negative) Urine Nitrate Negative (Negative) Urine Bilirubin Negative (NEGATIVE) Urine Urobilinogen 0.2 (0.2) E.U./dL Ur Leukocyte Esterase Negative (NEGATIVE) Urine RBC None seen (0-5/HPF) Urine WBC None seen (0-5/HPF) Ur Squamous Epith Cells 0-1 /hpf (0-5/HPF) Urine Bacteria None seen (None) Ur Culture Indicated? Cult not indicated 07/27/22 Range/Units 14:18 WBC (4.5-11.0) X10^3/uL RBC (4.0-5.2) X10^6/uL Hgb (12.0-16.0) g/dL Hct (36-46) % MCV (80-100) fL MCH (26-34) PG MCHC (30-36) % RDW (11.6-14.8) % Plt Count (150-400) X10^3/uL Neut % (Auto) (50-75) % Lymph % (Auto) (25-40) % [place] % (Auto) (3-14) % Eos % (Auto) (2-4) % Baso % (Auto) (0-2) % Neut # (Auto) (6583-1849) /uL Lymph # (Auto) (6807-4714) /uL [place] # (Auto) (0-900) /uL Eos # (Auto) (0-450) /uL Baso # (Auto) (0-100) /uL Sodium (137-145) mmol/L Potassium (3.4-5.1) mmol/L Chloride (98-107) mmol/L Carbon Dioxide (22-32) mmol/L BUN (7-17) mg/dL Creatinine (0.52-1.04) mg/dL Estimated GFR (>60) mL/min BUN/Creatinine Ratio (6-22) Glucose (70-100) mg/dL Calcium (8.4-10.2) mg/dL Total Bilirubin (0.2-1.3) mg/dL AST (14-36) IU/L ALT (<35) IU/L Alkaline Phosphatase (38-126) U/L Total Protein (6.3-8.2) g/dL Albumin (3.5-5.0) g/dL Globulin (1.7-4.1) g/dL Albumin/Globulin Ratio (1.0-2.8) Lipase (23-300) U/L Serum , Qual Negative (Negative) Urine Color Urine Appearance Urine pH (4.5-8.0) Ur Specific Fitz[place]am (1.000-1.035) Urine Protein (Negative) Urine Glucose (UA) (Negative) g/dL Urine Ketones (NEGATIVE) Urine Occult Blood (Negative) Urine Nitrate (Negative) Urine Bilirubin (NEGATIVE) Urine Urobilinogen (0.2) E.U./dL Ur Leukocyte Esterase (NEGATIVE) Urine RBC (0-5/HPF) Urine WBC (0-5/HPF) Ur Squamous Epith Cells (0-5/HPF) Urine Bacteria (None) Ur Culture Indicated? Discharge Plan Departure Patient Disposition: Home Clinical Impression: Acute suprapubic pain, Bacterial vaginosis Instructions: Bacterial Vaginosis Activity Restrictions/Additional Instructions: Your test was negative, take these pills twice a day for the next 7 days, you can repeat the vaginal applicator as well to help manage acute symptoms. Please stay hydrated, schedule a follow-up with your primary for retest of your urine and of your vaginal secretions. Hoping to get on top of this for you with the oral and vaginal regimen. Use the Toradol every 8 hours instead of ibuprofen as needed for inflammation and pain, you may take Tylenol concurrently. Empty your bladder frequently, we will call you if any of the other tests are positive and if you need an antibiotic. We have sent your urine for culture as well just in case there is bacteria which did not show up on the slide. They did not find any large cysts or vascular complications your pelvis. This is most likely related to overgrowth of normal bacteria. *What to do: *Please continue to take your regular medications as directed. [ x] New medication prescriptions sent to your pharmacy: [[facility] ] [ ] New medication written as a paper prescription [ ] No new medications given *Please follow up with your primary care provider in 2-3 days, call for an appointment. Let them know you were seen in the Emergency Department and that we asked that you be seen for follow-up. We will electronically transmit a record of today's note if your PCP is in our system *If you do not have a primary care provider please contact [phone] to establish care with one of the [facility] primary care providers. *Return to Emergency Department if you should have any new, worsening, or concerning symptoms, such as [fever greater than 101F, chills, worsening pain, persistent vomiting or other bothersome symptoms]. Prescriptions: New metronidazole 500 mg tablet 500 mg PO BID 7 Days Qty: 14 0RF Referrals: Ana M Navarro MD [Primary Care Provider] - Visit Report Forms: Patient Portal/API <Shauna Ellison DO - Last Filed: 08/02/22 04:41> Cosign ED Attending Griceldaature Attestation: I was immediately available in the department for consultation. Documentation has been reviewed.
[2022-07-27 14:23] LABS: Appearance Urine UA CLEAR; Bilirubin Urine UA NEGATIVE (NEGATIVE); Color Urine UA YELLOW; Glucose Urine UA 3+ g/dL (Negative); Ketones Urine UA NEGATIVE (NEGATIVE); Leukocyte Esterase Urine UA NEGATIVE (NEGATIVE); Nitrite Urine UA NEGATIVE (Negative); Occult Blood Urine UA NEGATIVE (Negative); Protein Urine UA NEGATIVE (Negative); Specific Gravity Urine UA 1.015 (1.000-1.035); Urobilinogen Urine UA 0.2 E.U./dL (0.2)
[2022-07-27 14:24] LABS: Bacteria Urine None Seen; RBC Urine None Seen (0-5/HPF); Squamous Epithelial Cell Urine 0-1 /HPF (0-5/HPF); WBC Urine None Seen (0-5/HPF)
[2022-07-27 14:25] LABS: Culture Indicated Urine Cult Not Indicated
[2022-07-27] MEDS: KETOROLAC 10 MG TABLET PO (14:36)
[2022-07-27] MEDS: ACETAMINOPHEN 325 MG TABLET 650 MG PO (14:36)
[2022-07-27] MEDS: PHENAZOPYRIDINE 100 MG TABLET PO (14:37)
[2022-07-27 14:43] LABS: Add Manual Diff / Slide Review NO; Basophils Absolute Auto 0 /uL (0-100); Basophils Percent Auto 0.2 % (0-2); Eosinophils Absolute Auto 100 /uL (0-450); Eosinophils Percent Auto 1.6 % (2-4); Hematocrit 44.6 % (36-46); Hemoglobin 14.9 g/dL (12.0-16.0); Lymphocytes Absolute Auto 3100 /uL (1100-4500); Lymphocytes Percent Auto 35.2 % (25-40); Mean Corpuscular HGB Conc 33.4 % (30-36); Mean Corpuscular Hemoglobin 29.1 PG (26-34); Mean Corpuscular Volume 87.2 fL (80-100); Monocytes Absolute Auto 400 /uL (0-900); Monocytes Percent Auto 4.6 % (3-14); Neutrophils Absolute Auto 5100 /uL (1500-7000); Neutrophils Percent Auto 58.4 % (50-75); Platelet Count 247 X10^3/uL (150-400); Red Blood Cell Count 5.11 X10^6/uL (4.0-5.2); Red Cell Distribution Width 12.9 % (11.6-14.8); White Blood Cell Count 8.7 X10^3/uL (4.5-11.0)
--- NOTE | 2022-07-27 14:44 | DI.US.S_ITS ---
PROCEDURE: US PELVIC COMPLETE INDICATIONS: suprapubic tenderness, not bladder infection, hx ovarian cys TECHNIQUE: Real-time scanning was performed of the pelvic organs, with image documentation. Additional endovaginal scanning was necessary due to incomplete visualization of the adnexal and endometrial structures by transabdominal scanning. COMPARISON: None. FINDINGS: Uterus: Uterus is anteverted and normal in size at 7.6 x 5.3 x 3.1 cm. The myometrium is homogeneous. The endometrium measures 6 mm combined thickness. Ovaries: The right ovary measures 2.7 x 1.9 x 1.7 cm, with a calculated ovarian volume of 5 cc. The left ovary measures 3.2 x 2.1 x 2.5 cm, with a calculated ovarian volume of 9 cc. The ovaries have a normal sonographic appearance. Less than 12 follicles can be seen in each ovary. No adnexal masses are seen. Other: No pathologic free abdominal or pelvic fluid. IMPRESSION: Unremarkable exam. We strive to produce accurate, complete, and clear reports of imaging services. To assist us in improving patient care, this report was composed using standard report templates and voice recognition software. Therefore, it may contain abnormal punctuation, insertions and/or omissions. Occasional wrong-word or sound-alike substitutions may occur. Though we review the report and make efforts to correct it, we do recommend that the report be read carefully in proper context to recognize any text inaccuracies. Dictated by: Elyse Terry M.D. on 07/27/2022 at 16:08 Approved by: Elyse Terry M.D. on 07/27/2022 at 16:09
[2022-07-27 14:56] LABS: Alanine Aminotransferase 37 IU/L (<35); Albumin 4.2 g/dL (3.5-5.0); Albumin Globulin Ratio 1.4 (1.0-2.8); Alkaline Phosphatase 90 U/L (38-126); Aspartate Aminotransferase 32 IU/L (14-36); BUN Creatinine Ratio 17.2 (6-22); Bilirubin Total 0.3 mg/dL (0.2-1.3); Blood Urea Nitrogen 10 mg/dL (7-17); Calcium 9.2 mg/dL (8.4-10.2); Carbon Dioxide 27 mmol/L (22-32); Chloride 102 mmol/L (98-107); Estimated Glomerular Filt Rate > 60 mL/min (>60); Globulin 3.1 g/dL (1.7-4.1); Glucose 130 mg/dL (70-100); HEMOLYSIS < 15 (0-50); Lipase 116 U/L (23-300); Potassium 4.4 mmol/L (3.4-5.1); Sodium 137 mmol/L (137-145); Total Protein 7.3 g/dL (6.3-8.2)
[2022-07-27 15:18] LABS: Pregnancy Test Serum,Qual Negative (Negative)
[2022-07-27] MEDS: METRONIDAZOLE 0.75% 5 APPLIC VAG (15:49)
[2022-07-27] MEDS: metroNIDAZOLE 500 MG TABLET PO (15:49)
== END 2022-07-27 16:22 | disposition home or self-care (01) ==
PROVIDERS: Emergency Medicine; Emergency Provider Nurse Practitioner Critical Care Medicine; PCP Student in an Organized Health Care Education/Training Program
DX: N76.0 Acute vaginitis (principal); R10.2 Pelvic and perineal pain
CPT/HCPCS: 36415; 76830; 76856; 80053; 81001; 83690; 84703; 85025; 87086; 87210; 93975; 99283; 99284

== ENCOUNTER → 2022-07-27 13:21 | Outpatient (CLI) | payer OTHER, SELFPAY | PROVIDERS: PCP Student in an Organized Health Care Education/Training Program; Visit Provider Nurse Practitioner Family | DX: R10.2 Pelvic and perineal pain (principal) | CPT/HCPCS: 87086 ==

== ENCOUNTER → 2024-09-06 11:55 | Outpatient (CLI) | payer OTHER, SELFPAY ==
--- NOTE | 2024-09-06 11:57 | DI.RAD.S_ITS ---
PROCEDURE: XR CHEST 2V INDICATIONS: Cough TECHNIQUE: 2 views of the chest were acquired. COMPARISON: [facility], CR, XR CHEST 2V, 01/15/2020, 20:15. FINDINGS: Surgical changes and devices: None. Lungs and pleura: Lungs are clear. No pleural effusions or pneumothorax. Mediastinum: Mediastinal contours are normal. Heart size is normal. Bones and chest wall: No suspicious bony abnormalities. Soft tissues appear unremarkable. IMPRESSION: No acute cardiopulmonary abnormalities or focal consolidation. Dictated by: Tono Reagan M.D. on 09/06/2024 at 15:59 Approved by: Tono Reagan M.D. on 09/06/2024 at 16:00
== END ==
PROVIDERS: Referring Provider Nurse Practitioner Family; Visit Provider Nurse Practitioner Family
DX: R05.9 Cough, unspecified (principal)
CPT/HCPCS: 71046

== ENCOUNTER 2024-11-29 12:03 | Day surgery (SDC) | payer OTHER, SELFPAY ==
--- NOTE | 2024-11-29 | PATH_ITS ---
[facility] Accession Number: [id number] No. of containers..03 Tissue . 01 Material submitted: . PART A: small bowel - SMALL BOWEL PART B: stomach - STOMACH ROULETTE PART C: colon - RANDOM COLON . 01 Clinical history: . A) ROULETTE CELIAC . 01 Diagnosis: A. SMALL BOWEL, BIOPSY: Small bowel mucosa with no diagnostic abnormality. Negative for active inflammation, features of sprue, dysplasia, or malignancy. . B. STOMACH, BIOPSY: Gastric antral and body mucosa with no diagnostic abnormality. No evidence of Helicobacter organisms on H/E stain. Negative for intestinal metaplasia. Negative for dysplasia or malignancy. . C. RANDOM COLON, BIOPSY: Colonic mucosa with no diagnostic abnormality. Negative for active, chronic, and microscopic colitis. Negative for dysplasia and malignancy. [facility] 12/01/2024 1053 Local . 01 Electronically signed: . Flako Fernández MD, PhD, Pathologist NPI- [id number] . 01 Gross description: . A. Received in formalin with two patient identifiers and 1. Small bowel, is a single grove soft tissue fragment, 0.4 cm in greatest dimension, submitted in A1. B. Received in formalin with two patient identifiers and 2. Stomach, are two grove soft tissue fragments, 0.3-0.4 cm in greatest dimension, submitted in B1. C. Received in formalin with two patient identifiers and 3. Random colon biopsies, are multiple grove soft tissue fragments aggregating to 0.8 x 0.7 x 0.1 cm. Filtered and submitted in C1. ([id number]) /MRV 11/30/2024 1338 Local . 01 Pathologist provided ICD-10: R10.13, K52.89 . 01 CPT . 663167, 634057, 332628 Specimen Comment: A courtesy copy of this report has been sent to [phone] Performed at: [address] [id number] MD Uri Toro MD Phone: [phone]
[2024-11-29 12:17] VITALS: BP 98/69; PULSE 84; RESP 16; TEMP 36.5; O2SAT 98
--- NOTE | 2024-11-29 12:41 | PM.PREOP ---
Pre-operative Note Interval Note History & Physical reviewed/Exam performed by Physician: Yes Changes to H&P: No ASA Class (for procedural sedation): II
--- NOTE | 2024-11-29 12:41 | PM.OP.EC ---
Operative Date/Time/Diagnoses Date of procedure: 11/29/24 Pre-op diagnosis: See indication findings Procedure & Clinicians Study performed: EGD and colonoscopy Same procedure as scheduled: Yes Indications: Abdominal pain change in bowel movements and CT scan showing colitis and ileitis Surgeon: Rita Bo Procedure Notes Procedure in detail: After informed consent was obtained the patient was placed in left lateral decubitus position. The video upper scope was placed into the oropharynx and with the patient's help swallowed into the esophagus. The esophagus stomach and duodenal were carefully examined. On withdrawal, retroflexed view the GE junction was performed. The scope was removed. The patient tolerated procedure well. The patient was then turned in the colonoscope substituted. This was placed in the rectum and easily passed the cecum. Preparation was good. On slow withdrawal mucosa was carefully examined. The scope was removed. The patient tolerated procedure well. Blood loss none Complications none Sedation mac Findings EGD 1. Scant white exudate in the upper esophagus consistent with possible Marimar. Distal esophagus completely normal 2. Striped and patchy moderate erythema in the entire stomach biopsies taken to rule out Helicobacter 3. Normal duodenal bulb and sweep biopsies taken to rule out celiac Colonoscopy 1. Unable to easily enter IC valve. 2. Otherwise normal colonoscopy to cecum. Biopsies taken Will be in touch regarding biopsy results
[2024-11-29] MEDS: LACTATED RINGERS 1,000 ML 42 ML IV (13:12)
[2024-11-29 13:56] VITALS: BP 96/59; PULSE 94; RESP 14; TEMP 36.8; O2SAT 97
[2024-11-29 14:01] VITALS: BP 100/61; PULSE 91; RESP 16; O2SAT 96
[2024-11-29 14:06] VITALS: BP 99/68; PULSE 89; RESP 14; O2SAT 98
[2024-11-29 14:11] VITALS: BP 105/70; PULSE 84; RESP 16; TEMP 36.8; O2SAT 98
[2024-11-29 14:14] VITALS: BP 115/76; PULSE 81; RESP 15; TEMP 36.8; O2SAT 98
== END 2024-11-29 14:29 | disposition home or self-care (01) ==
PROVIDERS: Referring Provider Internal Medicine Gastroenterology; Visit Provider Internal Medicine Gastroenterology
PROC: 0DJ08ZZ Inspection of Upper Intestinal Tract, Via Natural or Artificial Opening Endoscopic (ICD-10-PCS; CPT 45380; principal; 2024-11-29 13:00)
PROC: 0DJD8ZZ Inspection of Lower Intestinal Tract, Via Natural or Artificial Opening Endoscopic (ICD-10-PCS; CPT 45378; 2024-11-29 13:00)
DX: R10.9 Unspecified abdominal pain (principal); R93.5 Abnormal findings on diagnostic imaging of other abdominal regions, including retroperitoneum; R19.4 Change in bowel habit
CPT/HCPCS: 45380; 43239; 81025; J2704